=== PATIENT | male | born 1945 | race Caucasian/White ===

== ENCOUNTER 2020-12-29 05:37 | Inpatient (IN) | payer MEDICARE ==
[2020-12-29] MEDS ORDERED: Dextrose 5%-Lactated Ringers 1,000 ML IV SCH (06:30)
[2020-12-29] MEDS ORDERED: Propofol 200 MG/20 ML SDV ONE (07:09)
[2020-12-29] MEDS ORDERED: Midazolam 1 MG/ML 2 ML SDV ONE (07:09)
[2020-12-29] MEDS ORDERED: fentaNYL 100 MCG/2 ML SDV ONE (07:09)
[2020-12-29] MEDS ORDERED: Levofloxacin/Dextrose 5%-Water 500 MG in Premix Bag 1 BAG IV ONE (08:00)
[2020-12-29] MEDS ORDERED: Clindamycin Phosphate 900 MG in Sodium Chloride 0.9% 100 ML IV ONE (08:00)
--- NOTE | 2020-12-29 10:05 | CR ---
CHEST: Portable 12/29/2020 at 9:48 AM CLINICAL HISTORY:Questionable aspiration COMPARISON:None FINDINGS: There is patchy infiltrate in the left lower lobe. There is some increase in the left perihilar markings. Heart size and pulmonary vascular are normal. Impression: Left lower lobe pneumonic infiltrate. Increased perihilar lung markings on the left may represent a bronchitis
[2020-12-29] MEDS ORDERED: Magnesium Hydroxide 400 MG/5 ML Susp 30 ML Cup PO PRN (10:31)
[2020-12-29] MEDS ORDERED: Ondansetron 4 MG/2 ML SDV IV PRN (10:31)
[2020-12-29] MEDS ORDERED: LORazepam 2 MG/ML SDV IVPUSH PRN (10:31)
[2020-12-29] MEDS ORDERED: Ondansetron 4 MG Tab.DIS PO PRN (10:31)
[2020-12-29] MEDS ORDERED: Albuterol 0.083% 2.5 MG/3 ML Neb Soln NEB PRN (10:31)
[2020-12-29] MEDS ORDERED: Ibuprofen 600 MG Tab PO PRN (10:31)
[2020-12-29] MEDS ORDERED: Acetaminophen 325 MG Tab PO PRN (10:31)
[2020-12-29] MEDS ORDERED: Melatonin 3 MG Tab PO PRN (10:31)
--- NOTE | 2020-12-29 10:41 | PCM.HP.2 ---
H&P History of Present Illness - General Date of Service: 12/29/20 Admit Problem/Dx: Admission Diagnosis/Problem Admission Diagnosis/Problem Aspiration pneumonitis Source of Information: Patient, Family, Provider, RN Notes Reviewed History Limitations: Reports: No Limitations - History of Present Illness Initial Comments - Free Text/Narative: CC: aspiration HPI: Sanjiv was admitted from the [facility] development associate unit after he suffered an episode of aspiration near the end of his colonoscopy procedure. Following the aspiration he was noted to be hypoxic and initially cyanotic. He has required fairly large quantities of supplemental oxygen to maintain oxygen saturations in the low 90s. He is currently on 10 L with a nonrebreather mask. He does not feel particularly short of breath and has not been coughing. He did report some mild nausea during the transport to the intensive care unit but otherwise feels okay. He felt well prior to the procedure. No recent difficulties with fevers, cough or shortness of breath. Functional status had been stable. No recent difficulties with nausea, vomiting or diarrhea. No myalgias or arthralgias beyond baseline. No change in bladder habits. In the career development associate unit prior to admission he did receive a dose of levoflox acin as well as a dose of clindamycin. Chest x-ray and ABGs were obtained. - Related Data Allergies/Adverse Reactions: Allergies Allergy/AdvReac Type Severity Reaction Status Date / Time Penicillins Allergy Rash Verified 08/22/18 14:14 simvastatin Allergy Joint Pain Verified 08/22/18 14:14 Sulfa (Sulfonamide Allergy Rash Verified 08/22/18 14:14 Antibiotics) Home Medications: Home Meds Ascorbate Calcium [Vitamin C] 500 mg PO DAILY 08/22/18 [History] Cholecalciferol (Vitamin D3) [Vitamin D3] 1,000 unit PO DAILY 08/22/18 [History] Fexofenadine [Tiffanie] 60 mg PO DAILY 08/22/18 [History] Multivitamin with Minerals [Multiple Vitamin] 1 tab PO DAILY 08/22/18 [History] Warfarin [Coumadin] 2 mg PO DAILY 08/22/18 [History] atorvaSTATin [Lipitor] 20 mg PO DAILY 08/22/18 [History] Tamsulosin [Flomax] 0.4 mg PO DAILY 12/25/20 [History] Past Medical History HEENT History: Reports: Impaired Vision, Macular Degeneration Other HEENT History: wears glasses Cardiovascular History: Reports: High Cholesterol Respiratory History: Reports: Other (See Below) Other Respiratory History: HAY FEVER Gastrointestinal History: Reports: Colon Polyp Genitourinary History: Reports: BPH Musculoskeletal History: Reports: Arthritis, Other (See Below) Other Musculoskeletal History: right foot drop Hematologic History: Reports: Anticoagulation Therapy, Bleeding Disorder Other Hematologic History: FACTOR 5 Oncologic (Cancer) History: Reports: Other (See Below) Other Oncologic History: lip melanoma Dermatologic History: Reports: Melanoma Other Dermatologic History: LIP MELANOMA - Infectious Disease History Infectious Disease History: Reports: Chicken Pox, Measles, Mumps, Rubella - Past Surgical History HEENT Surgical History: Reports: Tonsillectomy Cardiovascular Surgical History: Reports: None Respiratory Surgical History: Reports: None GI Surgical History: Reports: Colonoscopy, Polypectomy Male Surgical History: Reports: Other (See Below) Other Male Surgeries/Procedures: RASUM procedure-11/28/2020 Musculoskeletal Surgical History: Reports: None Oncologic Surgical History: Reports: Other (See Below) Other Oncologic Surgeries/Procedures: 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 Pertinent positives and negatives are noted in the history of present illness. All other systems were reviewed and were negative except as noted. Exam - Exam Exam: See Below - Vital Signs Vital Signs: Last Vital Signs Temp 36.1 C 12/29/20 09:52 Pulse 51 L 12/29/20 09:42 Resp 17 12/29/20 09:52 BP 114/59 L 12/29/20 09:52 Pulse Ox 95 12/29/20 09:52 Weight: 87.997 kg - Exam Quality Assessment: Supplemental Oxygen General: Alert, Oriented, Cooperative, Mild Distress HEENT: Conjunctiva Clear. No: Mucosa Moist & [place] (dry), Scleral Icterus Neck: Supple, Trachea Midline. No: JVD Lungs: Normal Respiratory Effort, Decreased Breath Sounds (mild right lower chest ), Crackles (rare left lower chest ) Cardiovascular: Regular Rate, Regular Rhythm. No: Systolic Murmur GI/Abdominal Exam: Normal Bowel Sounds, Soft, Non-Tender, No Distention Extremities: No Pedal Edema. No: Increased Warmth Peripheral Pulses: 2+: Dorsalis Pedis (L), Dorsalis Pedis (R) Skin: Warm, Dry Neuro Extensive - Mental Status: Alert, Oriented x3, Nl Response to Commands Neuro Extensive - Motor, Sensory, Reflexes: No: Dysarthria, Abnormal Motor, Tremor Psychiatric: Alert, Normal Affect - Patient Data Lab Results Last 24 hrs: Laboratory Results - last 24 hr 12/29/20 Range/Units 09:30 Puncture Site Lt brachial ABG pH 7.415 (7.350-7.450) ABG pCO2 41.8 (35.0-42.0) mmHg ABG pO2 82.2 (75.0-100.0) mmHg ABG HCO3 26.3 H (22.0-26.0) mmol/L ABG Total CO2 22.4 L (23.0-27.0) mmol/L ABG O2 Saturation 96.4 (95.0-98.0) % ABG O2 Content 21.1 (15.0-23.0) %vol ABG Base Excess 2.0 mm/L ABG Hemoglobin 16.0 (13.5-18.0) g/dL ABG Oxyhemoglobin 93.9 % ABG Carboxyhemoglobin 1.9 H (0.0-1.6) % ABG Methemoglobin 0.7 % Antonio Test Not performed O2 Delivery Device Non rebr mask Oxygen Flow Rate 10.0 L Result Diagrams: 12/29/20 09:40 12/29/20 09:40 Imaging Impressions Last 24 hrs: CXR-image personally reviewed-small left lower lung infiltrate and increased perihilar markings. Heart size is normal. No masses. Sepsis Event Note - Focused Exam Vital Signs: Vital Signs Temp Pulse Resp BP Pulse Ox 12/29/20 09:52 36.1 C 17 114/59 L 95 12/29/20 09:42 35.4 C L 51 L 18 111/60 94 L 12/29/20 09:31 34.9 C L 53 L 18 89 L 12/29/20 09:20 52 L 16 104/63 88 L 12/29/20 09:15 53 L 20 94/59 L 90 L 12/29/20 09:10 89 L 12/29/20 09:00 34.9 C L 54 L 20 110/66 90 L 12/29/20 08:55 35.9 C L 55 L 18 113/61 91 L 12/29/20 08:50 57 L 18 111/58 L 90 L 12/29/20 08:45 53 L 18 115/62 91 L 12/29/20 08:40 53 L 18 96/60 89 L 12/29/20 08:36 50 L 18 79/52 L 88 L 12/29/20 08:30 59 L 18 96/57 L 85 L 12/29/20 08:25 35.7 C L 61 18 108/67 90 L 12/29/20 08:20 60 18 118/74 89 L 12/29/20 08:15 57 L 18 123/75 91 L 12/29/20 08:10 57 L 18 125/74 89 L 12/29/20 08:06 36.9 C 68 18 131/75 87 L 12/29/20 08:00 58 L 18 123/73 90 L 12/29/20 07:55 59 L 18 127/74 88 L 12/29/20 07:51 67 14 135/82 86 L 12/29/20 07:45 35.9 C L 67 14 122/72 91 L 12/29/20 06:00 35.9 C L 57 L 18 148/80 H 95 *Q Meaningful Use (ADM) - VTE Risk Assess *Q Each Risk Factor Represents 1 Point: Obesity ( BMI > 25 kg/m2), Serious lung disease including pneumonia Total Score 1 Point Risk Factors: 2 Each Risk Factor Represents 2 Points: None Total Score 2 Point Risk Factors: 0 Each Risk Factor Represents 3 Points: Age 75 Years or Greater Total Score 3 Point Risk Factors: 3 Each Risk Factor Represents 5 Points: None Total Score 5 Point Risk Factors: 0 Venous Thromboembolism Risk Factor Score *Q: 5 - Problem List (1) Postprocedural aspiration pneumonitis SNOMED Code(s): 936670394, 223660711 ICD Code: J95.4 - CHEMICAL PNEUMONITIS DUE TO ANESTHESIA Status: Acute Current Visit: Yes (2) Acute respiratory failure with hypoxia SNOMED Code(s): 88793860, 386642735 ICD Code: J96.01 - ACUTE RESPIRATORY FAILURE WITH HYPOXIA Status: Acute Current Visit: Yes Problem List Initiated/Reviewed/Updated: Yes Orders Last 24hrs: Active Orders 24 hr Category Date Time Status Patient Status [ADT] Routine ADT 12/29/20 10:31 Ordered Antiembolic Devices [RC] .Routine Care 12/29/20 10:31 Ordered Cardiac Monitoring [RC] CONTINUOUS Care 12/29/20 10:32 Ordered Intake and Output [RC] QSHIFT Care 12/29/20 10:31 Ordered Notify Provider Vital Signs [RC] ASDIRECTED Care 12/29/20 10:31 Ordered Oxygen Therapy [RC] PRN Care 12/29/20 10:31 Ordered Pulse Oximetry [RC] CONTINUOUS Care 12/29/20 10:32 Ordered RT Aerosol Therapy [RC] ASDIRECTED Care 12/29/20 10:34 Ordered Up With Assistance [RC] ASDIRECTED Care 12/29/20 10:31 Ordered VTE/DVT Education [RC] Per Unit Routine Care 12/29/20 10:31 Ordered Vital Signs [RC] Q4H Care 12/29/20 10:31 Ordered Regular Diet [DIET] Diet 12/29/20 Lunch Ordered CXR [Chest 2V] [CR] Timed Exams 12/30/20 05:00 Ordered BASIC METABOLIC PANEL,BMP [CHEM] AM Lab 12/30/20 05:11 Ordered BASIC METABOLIC PANEL,BMP [CHEM] Urgent Lab 12/29/20 10:35 Ordered CBC W/O DIFF,HEMOGRAM [HEME] AM Lab 12/30/20 05:11 Ordered CBC WITH AUTO DIFF [HEME] Urgent Lab 12/29/20 10:35 Ordered INR,PT,PROTHROMBIN TIME [COAG] AM Lab 12/30/20 05:11 Ordered INR,PT,PROTHROMBIN TIME [COAG] Urgent Lab 12/29/20 10:35 Ordered Acetaminophen [TylenoL] Med 12/29/20 10:31 Ordered 650 mg PO Q4H PRN Albuterol [Proventil Neb Soln] Med 12/29/20 10:31 Ordered 2.5 mg NEB Q4H PRN Albuterol [Proventil Neb Soln] Med 12/29/20 11:00 Ordered 2.5 mg NEB QIDRT Cholecalciferol (Vitamin D3) [Vitamin D3] Med 12/30/20 09:00 Ordered 1,000 unit PO DAILY Dextrose 5%-Lactated Ringers 1,000 ml Med 12/29/20 06:30 Active IV ASDIRECTED Docusate Sodium/Sennosides [Senna Plus] Med 12/29/20 10:31 Ordered 1 tab PO BID PRN Fexofenadine [Tiffanie] Med 12/30/20 09:00 Ordered 60 mg PO DAILY Ibuprofen [Motrin] Med 12/29/20 10:31 Ordered 600 mg PO Q6H PRN LORazepam [Ativan] Med 12/29/20 10:31 Ordered 0.5 mg IVPUSH Q4H PRN Lactobacillus Rhamnosus GG [Culturelle] Med 12/29/20 21:00 Ordered 1 cap PO BID Levofloxacin/Dextrose 5%-Water [Levaquin in D5W 750 MG/ Med 12/30/20 09:00 Ordered 150 ML] 750 mg Premix Bag 1 bag IV Q24H Magnesium Hydroxide [Milk of Magnesia] Med 12/29/20 10:31 Ordered 30 ml PO Q12H PRN Melatonin Med 12/29/20 10:31 Ordered 9 mg PO BEDTIME PRN Multivitamin with Minerals [Multiple Vitamin] Med 12/30/20 09:00 Ordered 1 tab PO DAILY Ondansetron [Zofran ODT] Med 12/29/20 10:31 Ordered 4 mg PO Q6H PRN Ondansetron [Zofran] Med 12/29/20 10:31 Ordered 4 mg IV Q6H PRN Sodium Chloride 0.9% [Normal Saline] 1,000 ml Med 12/29/20 10:45 Ordered IV ASDIRECTED Tamsulosin [Flomax] Med 12/30/20 09:00 Ordered 0.4 mg PO DAILY Warfarin [Coumadin] Med 12/30/20 09:00 Ordered 2 mg PO DAILY atorvaSTATin [Lipitor] Med 12/30/20 09:00 Ordered 20 mg PO DAILY cefTAZidime Pentahydrate [Fortaz] 1 gm Med 12/29/20 10:45 Ordered Sodium Chloride 0.9% [Normal Saline] 50 ml IV Q8H methylPREDNISolone Sod Succ [Solu-MEDROL] Med 12/29/20 10:45 Ordered 40 mg IVPUSH Q6H Sequential Compression Device [OM.PC] Routine Oth 12/29/20 10:31 Ordered Resuscitation Status Routine Resus Stat 12/29/20 10:31 Ordered Medication Orders Dextrose/Lactated Ringer's (Dextrose 5%-Lactated Ringers) 1,000 mls @ 100 mls/hr IV ASDIRECTED [facility] Last Admin: 12/29/20 06:35 Dose: 100 mls/hr Documented by: MADDY Assessment/Plan Comment:: ASSESSMENT AND PLAN - Aspiration pneumonitis-complicated by acute respiratory failure with hypoxia. Currently requiring a high level of supplemental oxygen support but clinically looks okay. ABGs were normal. Chest x-ray suggested a possible subtle left lung infiltrate. He does have some wheezing on examination. Vital signs are stable at this time. No history of lung disease. He will need close monitoring for the next 24 to 48 hours in case the aspiration pneumonitis progresses. -Antibiotic coverage with levofloxacin and ceftazidime -Solu-Medrol -Supplement oxygen as needed -Baseline laboratory studies including CBC and BMP -Repeat chest x-ray in the morning -Nebulizers -Cardiac monitoring and pulse oximetry Chronic anticoagulation-patient normally takes warfarin. INR is therapeutic at 2.8. -Hold warfarin today -Repeat INR in the morning Maintenance issues - -DVT prophylaxis-warfarin -GI prophylaxis-not indicated -Nutrition-regular diet -Hernández catheter-not indicated CODE STATUS -full code Admission justification -this patient will be admitted for inpatient services and is medically appropriate meeting medical necessity for inpatient admission as outlined in my documentation. I reasonably expect the patient will require inpatient services that span a period time over 2 midnights. I reasonably expect this patient to be discharged or transferred within 96 hours [facility]. Disposition -I anticipate discharge home after the hospital stay Primary care physician -Dr. Georgina Wells M.D. - Mortality Measure Prognosis:: Good
[2020-12-29] MEDS: Albuterol 0.083% 2.5 MG/3 ML Neb Soln NEB SCH ×3 (11:10→21:18)
[2020-12-29] MEDS: Sodium Chloride 0.9% 1,000 ML IV SCH ×2 (11:22→22:35)
[2020-12-29] MEDS: methylPREDNISolone Sodium Succinate 40 MG/1 ML SDV IVPUSH SCH ×3 (11:49→23:58)
[2020-12-29] MEDS: Lactobacillus Rhamnosus GG (Probiotic) Cap PO SCH (21:16)
[2020-12-30] MEDS: methylPREDNISolone Sodium Succinate 40 MG/1 ML SDV IVPUSH SCH (05:48)
[2020-12-30] MEDS: Albuterol 0.083% 2.5 MG/3 ML Neb Soln NEB SCH ×4 (07:01→20:28)
[2020-12-30] MEDS ORDERED: Sodium Chloride 0.9% 1,000 ML IV SCH (07:35)
[2020-12-30] MEDS: Levofloxacin/Dextrose 5%-Water 750 MG in Premix Bag 1 BAG IV SCH (08:50)
[2020-12-30] MEDS: Loratadine 10 MG Tab PO SCH (08:50)
[2020-12-30] MEDS: Tamsulosin 0.4 MG Cap.ER PO SCH (08:50)
[2020-12-30] MEDS: Lactobacillus Rhamnosus GG (Probiotic) Cap PO SCH ×2 (08:50→20:28)
[2020-12-30] MEDS: atorvaSTATin 20 MG Tab PO SCH (08:57)
[2020-12-30] MEDS: Cholecalciferol (Vitamin D3) 25 MCG Tab PO SCH (08:57)
[2020-12-30] MEDS: Multivitamins with Iron/Calcium/Folic Acid/Minerals Tab PO SCH (08:57)
--- NOTE | 2020-12-30 09:46 | PCM.PN ---
- General Info Date of Service: 12/30/20 Subjective Update: There were no acute events overnight. No chest pain. Minimal shortness of breath. Minimal cough. No fevers. Still requiring supplemental oxygen but he has improved significantly since yesterday. Appetite is good and tolerating his diet well. Functional Status: Reports: Pain Controlled, Tolerating Diet - Review of Systems General: Denies: Fever Pulmonary: Reports: Shortness of Breath (mild) - Patient Data Vitals - Most Recent: Last Vital Signs Temp 36.2 C 12/30/20 06:00 Pulse 70 12/30/20 07:01 Resp 20 12/30/20 06:00 BP 116/54 L 12/30/20 06:00 Pulse Ox 93 L 12/30/20 06:00 Weight - Most Recent: 87.543 kg I&O - Last 24 Hours: Intake & Output 12/29/20 12/30/20 12/30/20 22:59 06:59 14:59 Intake Total 1672 1900 Output Total 525 1000 Balance 1147 900 Lab Results Last 24 Hours: Laboratory Results - last 24 hr 12/29/20 12/29/20 12/29/20 Range/Units 09:40 09:40 09:40 WBC 4.8 (4.5-11.0) K/uL RBC 4.96 (4.30-5.90) M/uL Hgb 15.5 H (12.0-15.0) g/dL Hct 47.4 (40.0-54.0) % MCV 96 (80-98) fL MCH 31 (27-31) pg MCHC 33 (32-36) % Plt Count 181 (150-400) K/uL Neut % (Auto) 74 H (36-66) % Lymph % (Auto) 15 L (24-44) % [place] % (Auto) 8 H (2-6) % Eos % (Auto) 3 (2-4) % Baso % (Auto) 0 (0-1) % PT 30.1 H (9.5-12.0) sec INR 2.82 H (0.80-1.20) Sodium 144 (140-148) mmol/L Potassium 4.0 (3.6-5.2) mmol/L Chloride 107 (100-108) mmol/L Carbon Dioxide 28 (21-32) mmol/L Anion Gap 9.1 (5.0-14.0) mmol/L BUN 8 (7-18) mg/dL Creatinine 0.8 (0.8-1.3) mg/dL Est Cr Clr Drug Dosing 81.11 mL/min Estimated GFR (MDRD) > 60 (>60) Glucose 154 H (74-106) mg/dL Calcium 8.9 (8.5-10.1) mg/dL 12/30/20 12/30/20 12/30/20 Range/Units 04:10 04:10 04:10 WBC 19.4 H (4.5-11.0) K/uL RBC 4.72 (4.30-5.90) M/uL Hgb 14.7 (12.0-15.0) g/dL Hct 44.9 (40.0-54.0) % MCV 95 (80-98) fL MCH 31 (27-31) pg MCHC 33 (32-36) % Plt Count 166 (150-400) K/uL Neut % (Auto) (36-66) % Lymph % (Auto) (24-44) % [place] % (Auto) (2-6) % Eos % (Auto) (2-4) % Baso % (Auto) (0-1) % PT 34.9 H (9.5-12.0) sec INR 3.28 H (0.80-1.20) Sodium 142 (140-148) mmol/L Potassium 4.1 (3.6-5.2) mmol/L Chloride 105 (100-108) mmol/L Carbon Dioxide 26 (21-32) mmol/L Anion Gap 11.5 (5.0-14.0) mmol/L BUN 11 (7-18) mg/dL Creatinine 1.0 (0.8-1.3) mg/dL Est Cr Clr Drug Dosing 64.89 mL/min Estimated GFR (MDRD) > 60 (>60) Glucose 162 H (74-106) mg/dL Calcium 8.7 (8.5-10.1) mg/dL Med Orders - Current: Current Medications Acetaminophen (Acetaminophen 325 Mg Tab) 650 mg PO Q4H PRN PRN Reason: Pain (Mild 1-3)/fever Albuterol (Albuterol 0.083% 2.5 Mg/3 Ml Neb Soln) 2.5 mg NEB Q4H PRN PRN Reason: Shortness Of Breath/wheezing Albuterol (Albuterol 0.083% 2.5 Mg/3 Ml Neb Soln) 2.5 mg NEB QIDRT [facility] Last Admin: 12/30/20 07:01 Dose: 2.5 mg Documented by: Atorvastatin Calcium (Atorvastatin 20 Mg Tab) 20 mg PO DAILY [facility] Last Admin: 12/30/20 08:57 Dose: 20 mg Documented by: Cholecalciferol (Cholecalciferol (Vitamin D3) 25 Mcg Tab) 25 mcg PO DAILY [facility] Last Admin: 12/30/20 08:57 Dose: 25 mcg Documented by: Levofloxacin/Dextrose 750 mg/ (Premix) 150 mls @ 100 mls/hr IV Q24H [facility] Last Admin: 12/30/20 08:50 Dose: 100 mls/hr Documented by: Ceftazidime 1 gm/ Sodium (Chloride) 50 mls @ 100 mls/hr IV Q8H [facility] Last Admin: 12/30/20 04:28 Dose: 100 mls/hr Documented by: Sodium Chloride (Normal Saline) 1,000 mls @ 25 mls/hr IV ASDIRECTED [facility] Ibuprofen (Ibuprofen 600 Mg Tab) 600 mg PO Q6H PRN PRN Reason: Pain/Fever Lactobacillus Rhamnosus (Lactobacillus Rhamnosus Gg (Probiotic) Cap) 1 cap PO BID [facility] Last Admin: 12/30/20 08:50 Dose: 1 cap Documented by: Loratadine (Loratadine 10 Mg Tab) 10 mg PO DAILY [facility] Last Admin: 12/30/20 08:50 Dose: Not Given Documented by: Lorazepam (Lorazepam 2 Mg/Ml Sdv) 0.5 mg IVPUSH Q4H PRN PRN Reason: Nausea/Vomiting Magnesium Hydroxide (Magnesium Hydroxide 400 Mg/5 Ml Susp 30 Ml Cup) 30 ml PO Q12H PRN PRN Reason: Constipation Melatonin (Melatonin 3 Mg Tab) 9 mg PO BEDTIME PRN PRN Reason: Sleep Multivitamins/Minerals (Multivitamins With Iron/Calcium/Folic Acid/Minerals Tab) 1 tab PO DAILY [facility] Last Admin: 12/30/20 08:57 Dose: 1 tab Documented by: Ondansetron HCl (Ondansetron 4 Mg/2 Ml Sdv) 4 mg IV Q6H PRN PRN Reason: Nausea/Vomiting Ondansetron HCl (Ondansetron 4 Mg Tab.Dis) 4 mg PO Q6H PRN PRN Reason: Nausea able to take PO Prednisone (Prednisone 20 Mg Tab) 40 mg PO ONETIME ONE Stop: 12/30/20 09:45 Prednisone (Prednisone 20 Mg Tab) 40 mg PO WITHBREAKFAST [facility] Senna/Docusate Sodium (Docusate Sodium/Sennosides 50-8.6 Mg Tab) 1 tab PO BID PRN PRN Reason: Constipation Tamsulosin HCl (Tamsulosin 0.4 Mg Cap.Er) 0.4 mg PO DAILY [facility] Last Admin: 12/30/20 08:50 Dose: 0.4 mg Documented by: Discontinued Medications Fentanyl (Fentanyl 100 Mcg/2 Ml Sdv) Confirm Administered Dose 100 mcg .ROUTE .STK-MED ONE Stop: 12/29/20 07:10 Dextrose/Lactated Ringer's (Dextrose 5%-Lactated Ringers) 1,000 mls @ 100 mls/hr IV ASDIRECTED [facility] Last Admin: 12/29/20 06:35 Dose: 100 mls/hr Documented by: Levofloxacin/Dextrose 500 mg/ (Premix) 100 mls @ 100 mls/hr IV ONETIME ONE Stop: 12/29/20 08:59 Last Admin: 12/29/20 07:58 Dose: 100 mls/hr Documented by: Clindamycin Phosphate 900 mg/ (Sodium Chloride) 106 mls @ 200 mls/hr IV ONETIME ONE Stop: 12/29/20 08:31 Last Admin: 12/29/20 08:06 Dose: 200 mls/hr Documented by: Sodium Chloride (Normal Saline) 1,000 mls @ 100 mls/hr IV ASDIRECTED [facility] Last Admin: 12/29/20 22:35 Dose: 100 mls/hr Documented by: Methylprednisolone Sodium Succinate (Methylprednisolone Sodium Succinate 40 Mg/1 Ml Sdv) 40 mg IVPUSH Q6H [facility] Last Admin: 12/30/20 05:48 Dose: 40 mg Documented by: Midazolam HCl (Midazolam 1 Mg/Ml 2 Ml Sdv) Confirm Administered Dose 2 mg .ROUTE .STK-MED ONE Stop: 12/29/20 07:10 Propofol (Propofol 200 Mg/20 Ml Sdv) Confirm Administered Dose 200 mg .ROUTE .STK-MED ONE Stop: 12/29/20 07:10 Warfarin Sodium (Warfarin 1 Mg Tab) 2 mg PO DAILY@1300 MARIO Warfarin Sodium (Warfarin 1 Mg Tab) 2 mg PO DAILY@1300 MARIO - Exam Quality Assessment: Supplemental Oxygen General: Alert, Oriented, Cooperative, No Acute Distress Lungs: Normal Respiratory Effort, Crackles (few left lung base) Cardiovascular: Regular Rate, Regular Rhythm GI/Abdominal Exam: Soft, No Distention Extremities: No Pedal Edema. No: Increased Warmth Skin: Warm, Dry Psy/Mental Status: Alert, Normal Affect - Patient Data Lab Results Last 24 hrs: Laboratory Results - last 24 hr 12/29/20 12/29/20 12/29/20 Range/Units 09:40 09:40 09:40 WBC 4.8 (4.5-11.0) K/uL RBC 4.96 (4.30-5.90) M/uL Hgb 15.5 H (12.0-15.0) g/dL Hct 47.4 (40.0-54.0) % MCV 96 (80-98) fL MCH 31 (27-31) pg MCHC 33 (32-36) % Plt Count 181 (150-400) K/uL Neut % (Auto) 74 H (36-66) % Lymph % (Auto) 15 L (24-44) % [place] % (Auto) 8 H (2-6) % Eos % (Auto) 3 (2-4) % Baso % (Auto) 0 (0-1) % PT 30.1 H (9.5-12.0) sec INR 2.82 H (0.80-1.20) Sodium 144 (140-148) mmol/L Potassium 4.0 (3.6-5.2) mmol/L Chloride 107 (100-108) mmol/L Carbon Dioxide 28 (21-32) mmol/L Anion Gap 9.1 (5.0-14.0) mmol/L BUN 8 (7-18) mg/dL Creatinine 0.8 (0.8-1.3) mg/dL Est Cr Clr Drug Dosing 81.11 mL/min Estimated GFR (MDRD) > 60 (>60) Glucose 154 H (74-106) mg/dL Calcium 8.9 (8.5-10.1) mg/dL 12/30/20 12/30/20 12/30/20 Range/Units 04:10 04:10 04:10 WBC 19.4 H (4.5-11.0) K/uL RBC 4.72 (4.30-5.90) M/uL Hgb 14.7 (12.0-15.0) g/dL Hct 44.9 (40.0-54.0) % MCV 95 (80-98) fL MCH 31 (27-31) pg MCHC 33 (32-36) % Plt Count 166 (150-400) K/uL Neut % (Auto) (36-66) % Lymph % (Auto) (24-44) % [place] % (Auto) (2-6) % Eos % (Auto) (2-4) % Baso % (Auto) (0-1) % PT 34.9 H (9.5-12.0) sec INR 3.28 H (0.80-1.20) Sodium 142 (140-148) mmol/L Potassium 4.1 (3.6-5.2) mmol/L Chloride 105 (100-108) mmol/L Carbon Dioxide 26 (21-32) mmol/L Anion Gap 11.5 (5.0-14.0) mmol/L BUN 11 (7-18) mg/dL Creatinine 1.0 (0.8-1.3) mg/dL Est Cr Clr Drug Dosing 64.89 mL/min Estimated GFR (MDRD) > 60 (>60) Glucose 162 H (74-106) mg/dL Calcium 8.7 (8.5-10.1) mg/dL Result Diagrams: 12/30/20 04:10 12/30/20 04:10 Sepsis Event Note - Evaluation Sepsis Screening Result: No Definite Risk - Focused Exam Vital Signs: Vital Signs Temp Pulse Resp BP Pulse Ox 12/30/20 07:01 70 12/30/20 06:00 36.2 C 63 20 116/54 L 93 L 12/30/20 04:00 69 21 H 120/57 L 91 L 12/30/20 02:00 36.5 C 72 19 118/54 L 91 L 12/30/20 00:00 71 19 158/97 H 93 L 12/29/20 22:00 36.4 C 88 18 126/56 L 92 L - Problem List & Annotations (1) Postprocedural aspiration pneumonitis SNOMED Code(s): 488696146, 672694076 Code(s): J95.4 - CHEMICAL PNEUMONITIS DUE TO ANESTHESIA Status: Acute Current Visit: Yes (2) Acute respiratory failure with hypoxia SNOMED Code(s): 71436912, 527954708 Code(s): J96.01 - ACUTE RESPIRATORY FAILURE WITH HYPOXIA Status: Acute Current Visit: Yes - Problem List Review Problem List Initiated/Reviewed/Updated: Yes - My Orders Last 24 Hours: My Active Orders 12/29/20 10:31 Patient Status [ADT] Routine Antiembolic Devices [RC] .Routine Intake and Output [RC] QSHIFT Notify Provider Vital Signs [RC] ASDIRECTED Oxygen Therapy [RC] PRN Up With Assistance [RC] ASDIRECTED VTE/DVT Education [RC] Per Unit Routine Vital Signs [RC] Q4H Acetaminophen [TylenoL] 650 mg PO Q4H PRN Albuterol [Proventil Neb Soln] 2.5 mg NEB Q4H PRN Docusate Sodium/Sennosides [Senna Plus] 1 tab PO BID PRN Ibuprofen [Motrin] 600 mg PO Q6H PRN LORazepam [Ativan] 0.5 mg IVPUSH Q4H PRN Magnesium Hydroxide [Milk of Magnesia] 30 ml PO Q12H PRN Melatonin 9 mg PO BEDTIME PRN Ondansetron [Zofran ODT] 4 mg PO Q6H PRN Ondansetron [Zofran] 4 mg IV Q6H PRN Sequential Compression Device [OM.PC] Routine Resuscitation Status Routine 12/29/20 10:34 RT Aerosol Therapy [RC] ASDIRECTED 12/29/20 11:00 Albuterol [Proventil Neb Soln] 2.5 mg NEB QIDRT 12/29/20 Lunch Regular Diet [DIET] cefTAZidime Pentahydrate [Fortaz] 1 gm Sodium Chloride 0.9% [Normal Saline] 50 ml IV Q8H 12/29/20 21:00 Lactobacillus Rhamnosus GG [Culturelle] 1 cap PO BID 12/30/20 05:00 CXR [Chest 2V] [CR] Timed 12/30/20 07:35 Sodium Chloride 0.9% [Normal Saline] 1,000 ml IV ASDIRECTED 12/30/20 09:00 Cholecalciferol (Vitamin D3) [Vitamin D3] 25 mcg PO DAILY Levofloxacin/Dextrose 5%-Water [Levaquin in D5W 750 MG/150 ML] 750 mg Premix Bag 1 bag IV Q24H Loratadine [Claritin] 10 mg PO DAILY Multivitamins w-Iron/Ca/FA/Min [Thera M Plus] 1 tab PO DAILY Tamsulosin [Flomax] 0.4 mg PO DAILY atorvaSTATin [Lipitor] 20 mg PO DAILY 12/30/20 09:44 predniSONE 40 mg PO ONETIME ONE 12/30/20 09:45 Transfer Patient (Change bed) [ADT] Routine Discontinue Telemetry Monitoring [Cardiac Monitoring Discontinue] [RC] Click to Edit 12/31/20 05:00 CBC W/O DIFF,HEMOGRAM [HEME] Timed (1) INR,PT,PROTHROMBIN TIME [COAG] Timed 12/31/20 08:00 predniSONE 40 mg PO WITHBREAKFAST - Plan Plan:: ASSESSMENT AND PLAN - Aspiration pneumonitis-complicated by acute respiratory failure with hypoxia. Respiratory status much improved but still requiring supplemental oxygen. Minimal symptoms and steadily improving. -Antibiotic coverage with levofloxacin and ceftazidime -Transition to prednisone -Supplement oxygen as needed -Repeat chest x-ray in the morning -Nebulizers -Discontinue cardiac monitoring Chronic anticoagulation, factor V Leiden mutation-patient normally takes warfarin. INR is supra therapeutic at 3.2. -Hold warfarin today -Repeat INR in the morning Maintenance issues - -DVT prophylaxis-warfarin -GI prophylaxis-not indicated -Nutrition-regular diet Disposition -I anticipate discharge home after the hospital stay Primary care physician -Dr. Georgina Wells M.D.
[2020-12-30] MEDS ORDERED: predniSONE 20 MG Tab PO ONE (10:00)
--- NOTE | 2020-12-30 10:55 | CR ---
CHEST: 2 view CLINICAL HISTORY:Follow-up aspiration COMPARISON:12/29/2020 FINDINGS: Heart size is upper limits of normal. There is a moderate-sized hiatal hernia. There is still patchy airspace disease in the left lower lobe. Some of this due to atelectasis. It has diminished since prior study. Right lung is clear. There are atherosclerotic changes in the aorta. Impression: Residual streaky atelectasis and infiltrate in the left lower lobe. There has been some improvement since prior study Moderate size hiatal hernia.
[2020-12-31] MEDS: Albuterol 0.083% 2.5 MG/3 ML Neb Soln NEB SCH (07:00)
[2020-12-31] MEDS ORDERED: predniSONE 20 MG Tab PO SCH (08:00)
[2020-12-31] MEDS: Tamsulosin 0.4 MG Cap.ER PO SCH (08:03)
[2020-12-31] MEDS: atorvaSTATin 20 MG Tab PO SCH (08:03)
[2020-12-31] MEDS: Lactobacillus Rhamnosus GG (Probiotic) Cap PO SCH (08:03)
[2020-12-31] MEDS: Levofloxacin/Dextrose 5%-Water 750 MG in Premix Bag 1 BAG IV SCH (08:04)
[2020-12-31] MEDS: Multivitamins with Iron/Calcium/Folic Acid/Minerals Tab PO SCH (08:04)
[2020-12-31] MEDS: Cholecalciferol (Vitamin D3) 25 MCG Tab PO SCH (08:04)
[2020-12-31] MEDS: Loratadine 10 MG Tab PO SCH (08:17)
--- NOTE | 2020-12-31 08:58 | PCM.DCSUM1 ---
Discharge Summary - Hospital Course Brief History: 75-year-old male who was admitted for respiratory failure secondary to aspiration pneumonitis following the colonoscopy. Diagnosis: Stroke: No - Discharge Data Discharge Date: 12/31/20 Discharge Disposition: Home, Self-Care 01 Condition: Good - Referral to Home Health Primary Care Physician: PCP None - Discharge Diagnosis/Problem(s) (1) Postprocedural aspiration pneumonitis SNOMED Code(s): 443622979, 519235860 ICD Code: J95.4 - CHEMICAL PNEUMONITIS DUE TO ANESTHESIA Status: Acute Current Visit: Yes (2) Acute respiratory failure with hypoxia SNOMED Code(s): 42730896, 983333586 ICD Code: J96.01 - ACUTE RESPIRATORY FAILURE WITH HYPOXIA Status: Acute Current Visit: Yes - Patient Summary/Data Hospital Course: Sanjiv presented as a direct admission to the intensive care unit from the client care manager center after he had an episode of aspiration during a colonoscopy. He was requiring high quantities of supplemental oxygen at 8 to 10 L via nonrebreather. He did receive a dose of levofloxacin and a dose of clindamycin in the client care manager unit prior to admission. He was admitted to the intensive care unit and baseline laboratory studies as well as a chest x-ray were obtained. There was a subtle left lower lung infiltrate already. He had significant wheezing noted on examination. We did start him on steroids as well as levofloxacin and ceftazidime to help manage the aspiration pneumonitis given the severity of his respiratory compromise. Fortunately overnight following admission there were no acute issues and he had a pretty impressive improvement. By the morning after admission he was down from 10 to 3 L of supplemental oxygen. He was breathing better. He did have some sputum but otherwise was feeling okay. He did not have any significant fevers. We continued the steroids and antibiotics through the next 24 hours with ongoing improvement. We were able to wean him off the supplemental oxygen. He does continue to produce sputum but is feeling much better. His strength is back to normal. Vital signs have all been stable. He has not had any fevers. He feels well enough to go home at this time. The plan is for him to have 3 additional days of antibiotic therapy after hospital discharge. I do not think he needs steroids at this point so they will be stopped. He did get 3 days of steroids in the hospital. He will have early follow-up next week. - Patient Instructions Diet: Usual Diet as Tolerated Activity: As Tolerated Driving: May Drive Today Showering/Bathing: May Shower Notify Provider of: Fever, Increased Pain Other/Special Instructions: 1. You were in the hospital for management of aspiration pneumonitis complicated by acute respiratory failure with hypoxia. Your condition has been improving with a combination of time, steroids and antibiotics. I believe you have received adequate steroids. I do recommend a few additional days of antibiotic therapy after hospital discharge. Please take levofloxacin 750 mg once daily for 3 days. Your first dose outside of the hospital will be due on morning around 9 AM. You should separate this medication from dairy products by about 2 hours if possible. You may resume your usual activities and increase activity as tolerated. 2. Continue your usual home medications and diet as previously prescribed. 3. Follow-up with the Coumadin clinic on Tuesday and your primary care provider as scheduled. - Discharge Plan *PRESCRIPTION DRUG MONITORING PROGRAM REVIEWED*: Not Applicable *COPY OF PRESCRIPTION DRUG MONITORING REPORT IN PATIENT RAY: Not Applicable Prescriptions/Med Rec: Levofloxacin 750 mg PO DAILY #3 tablet Home Medications: Home Meds Ascorbate Calcium [Vitamin C] 500 mg PO DAILY 08/22/18 [History] Cholecalciferol (Vitamin D3) [Vitamin D3] 1,000 unit PO DAILY 08/22/18 [History] Fexofenadine [Tiffanie] 60 mg PO DAILY 08/22/18 [History] Multivitamin with Minerals [Multiple Vitamin] 1 tab PO DAILY 08/22/18 [History] Warfarin [Coumadin] 2 mg PO DAILY 08/22/18 [History] atorvaSTATin [Lipitor] 20 mg PO DAILY 08/22/18 [History] Tamsulosin [Flomax] 0.4 mg PO DAILY 12/25/20 [History] Levofloxacin 750 mg PO DAILY #3 tablet 12/31/20 [Rx] Oxygen Therapy Mode: Room Air Patient Handouts: Levofloxacin tablets, Aspiration Pneumonia Referrals: Georgina Balderas MD [Ordering Only Provider] - 01/07/21 1:30 pm (Please arrive 15 minutesearly to register for your appointment.) - Discharge Summary/Plan Comment DC Time >30 min.: No - Patient Data Vitals - Most Recent: Last Vital Signs Temp 36.8 C 12/31/20 08:13 Pulse 88 12/31/20 08:13 Resp 20 12/31/20 08:13 BP 132/61 12/31/20 08:13 Pulse Ox 93 L 12/31/20 08:13 Weight - Most Recent: 87.543 kg I&O - Last 24 hours: Intake & Output 12/30/20 12/31/20 12/31/20 22:59 06:59 14:59 Intake Total 1366 50 600 Output Total 925 475 200 Balance 441 -425 400 Lab Results - Last 24 hrs: Laboratory Results - last 24 hr 12/31/20 12/31/20 Range/Units 04:10 04:10 WBC 19.4 H (4.5-11.0) K/uL RBC 4.50 (4.30-5.90) M/uL Hgb 14.0 (12.0-15.0) g/dL Hct 42.9 (40.0-54.0) % MCV 95 (80-98) fL MCH 31 (27-31) pg MCHC 33 (32-36) % Plt Count 158 (150-400) K/uL PT 24.0 H (9.5-12.0) sec INR 2.24 H (0.80-1.20) Med Orders - Current: Current Medications Acetaminophen (Acetaminophen 325 Mg Tab) 650 mg PO Q4H PRN PRN Reason: Pain (Mild 1-3)/fever Albuterol (Albuterol 0.083% 2.5 Mg/3 Ml Neb Soln) 2.5 mg NEB Q4H PRN PRN Reason: Shortness Of Breath/wheezing Albuterol (Albuterol 0.083% 2.5 Mg/3 Ml Neb Soln) 2.5 mg NEB QIDRT ON [facility] OF [facility] Last Admin: 12/31/20 07:00 Dose: 2.5 mg Documented by: Atorvastatin Calcium (Atorvastatin 20 Mg Tab) 20 mg PO DAILY [facility] Last Admin: 12/31/20 08:03 Dose: Not Given Documented by: Cholecalciferol (Cholecalciferol (Vitamin D3) 25 Mcg Tab) 25 mcg PO DAILY [facility] Last Admin: 12/31/20 08:04 Dose: Not Given Documented by: Levofloxacin/Dextrose 750 mg/ (Premix) 150 mls @ 100 mls/hr IV Q24H ON [facility] Last Admin: 12/31/20 08:04 Dose: 100 mls/hr Documented by: Ceftazidime 1 gm/ Sodium (Chloride) 50 mls @ 100 mls/hr IV Q8H ON [facility] Last Admin: 12/31/20 04:17 Dose: 100 mls/hr Documented by: Sodium Chloride (Normal Saline) 1,000 mls @ 25 mls/hr IV ASDIRECTED ON [facility] OF [facility] Last Admin: 12/30/20 11:22 Dose: 25 mls/hr Documented by: Ibuprofen (Ibuprofen 600 Mg Tab) 600 mg PO Q6H PRN PRN Reason: Pain/Fever Lactobacillus Rhamnosus (Lactobacillus Rhamnosus Gg (Probiotic) Cap) 1 cap PO BID ON [facility] Last Admin: 12/31/20 08:03 Dose: 1 cap Documented by: Loratadine (Loratadine 10 Mg Tab) 10 mg PO DAILY [facility] Last Admin: 12/31/20 08:17 Dose: Not Given Documented by: Lorazepam (Lorazepam 2 Mg/Ml Sdv) 0.5 mg IVPUSH Q4H PRN PRN Reason: Nausea/Vomiting Magnesium Hydroxide (Magnesium Hydroxide 400 Mg/5 Ml Susp 30 Ml Cup) 30 ml PO Q12H PRN PRN Reason: Constipation Melatonin (Melatonin 3 Mg Tab) 9 mg PO BEDTIME PRN PRN Reason: Sleep Multivitamins/Minerals (Multivitamins With Iron/Calcium/Folic Acid/Minerals Tab) 1 tab PO DAILY [facility] Last Admin: 12/31/20 08:04 Dose: 1 tab Documented by: Ondansetron HCl (Ondansetron 4 Mg/2 Ml Sdv) 4 mg IV Q6H PRN PRN Reason: Nausea/Vomiting Ondansetron HCl (Ondansetron 4 Mg Tab.Dis) 4 mg PO Q6H PRN PRN Reason: Nausea able to take PO Prednisone (Prednisone 20 Mg Tab) 40 mg PO WITHBREAKFAST ON [facility] Last Admin: 12/31/20 08:04 Dose: 40 mg Documented by: Senna/Docusate Sodium (Docusate Sodium/Sennosides 50-8.6 Mg Tab) 1 tab PO BID PRN PRN Reason: Constipation Tamsulosin HCl (Tamsulosin 0.4 Mg Cap.Er) 0.4 mg PO DAILY [facility] Last Admin: 12/31/20 08:03 Dose: Not Given Documented by: Discontinued Medications Fentanyl (Fentanyl 100 Mcg/2 Ml Sdv) Confirm Administered Dose 100 mcg .ROUTE .STK-MED ONE Stop: 12/29/20 07:10 Dextrose/Lactated Ringer's (Dextrose 5%-Lactated Ringers) 1,000 mls @ 100 mls/hr IV ASDIRECTED ON [facility] Last Admin: 12/29/20 06:35 Dose: 100 mls/hr Documented by: Levofloxacin/Dextrose 500 mg/ (Premix) 100 mls @ 100 mls/hr IV ONETIME ONE Stop: 12/29/20 08:59 Last Admin: 12/29/20 07:58 Dose: 100 mls/hr Documented by: Clindamycin Phosphate 900 mg/ (Sodium Chloride) 106 mls @ 200 mls/hr IV ONETIME ONE Stop: 12/29/20 08:31 Last Admin: 12/29/20 08:06 Dose: 200 mls/hr Documented by: Sodium Chloride (Normal Saline) 1,000 mls @ 100 mls/hr IV ASDIRECTED ON [facility] Last Admin: 12/29/20 22:35 Dose: 100 mls/hr Documented by: Methylprednisolone Sodium Succinate (Methylprednisolone Sodium Succinate 40 Mg/1 Ml Sdv) 40 mg IVPUSH Q6H ON LICENSE [facility] Last Admin: 12/30/20 05:48 Dose: 40 mg Documented by: Midazolam HCl (Midazolam 1 Mg/Ml 2 Ml Sdv) Confirm Administered Dose 2 mg .ROUTE .STK-MED ONE Stop: 12/29/20 07:10 Prednisone (Prednisone 20 Mg Tab) 40 mg PO ONETIME ONE Stop: 12/30/20 10:01 Last Admin: 12/30/20 11:24 Dose: 40 mg Documented by: Propofol (Propofol 200 Mg/20 Ml Sdv) Confirm Administered Dose 200 mg .ROUTE .STK-MED ONE Stop: 12/29/20 07:10 Warfarin Sodium (Warfarin 1 Mg Tab) 2 mg PO DAILY@1300 MARIO Warfarin Sodium (Warfarin 1 Mg Tab) 2 mg PO DAILY@1300 ON LICENSE OF [facility]
== END 2020-12-31 11:35 | disposition home or self-care (01) | DRG 205 ==
LOC: JP.SDS 05:37 → JP.MS 05:37 → EDSTATUS 07:15 → JP.ICU 10:00
PROVIDERS: ADMIT Surgery; ATTEND Internal Medicine
DX: J95.4 Chemical pneumonitis due to anesthesia (principal); J96.01 Acute respiratory failure with hypoxia; D68.51 Activated protein C resistance; T41.0X5A Adverse effect of inhaled anesthetics, initial encounter; H54.7 Unspecified visual loss; E78.00 Pure hypercholesterolemia, unspecified; N40.0 Benign prostatic hyperplasia without lower urinary tract symptoms; M19.90 Unspecified osteoarthritis, unspecified site; Z88.0 Allergy status to penicillin; Z88.2 Allergy status to sulfonamides; Z79.01 Long term (current) use of anticoagulants; Z79.899 Other long term (current) drug therapy; Z85.820 Personal history of malignant melanoma of skin; Z98.890 Other specified postprocedural states
CPT/HCPCS: 36415; 36600; 71045; 71045-26; 71046; 71046-26; 80048; 82803; 85025; 85027; 85610; 94640; 99222; 99232; 99238; A9270-GY; J0713; J1956; J2250; J2704; J2920; J3010; J3490; J7030; J7121; J7512